=== PATIENT | male | born 1970 | race Caucasian/White ===

== ENCOUNTER 2024-01-24 19:34 | Emergency (ER) | payer MEDICARE, MEDICAID, SELFPAY ==
[2024-01-24 19:48] VITALS: BP 180/99; PULSE 100; RESP 18; TEMP 37.6; O2SAT 100
--- NOTE | 2024-01-24 20:00 | ED.SKABFB ---
HPI - Skin/Abscess/Foreign Bdy General Chief complaint: Skin/Abscess/Foreign Body Stated complaint: foliculitis back of head Time Seen by Provider: 01/24/24 20:05 Source: patient, RN notes reviewed and old records reviewed Mode of arrival: ambulatory Limitations: no limitations History of Present Illness HPI narrative: 53-year-old male who presents to [facility] with complaints of ongoing problems with folliculitis to the back of his head for the past year after having a hair cut. Patient reports that for the past month he has had a flare of raised red areas to the back of his head with pain swelling and some purulent drainage. noted, reports that areas are itchy at times.Patient reports that he did have a fever up to 100F 2 days ago. Pateint reports that he has been applying hot compresses to the back of his head using antibacterial soap and also ivory soap and applying Mupirocin ointment. Patient reports that areas are itchy. Patient reports no history of decrease in kidney function. MD complaint: abscess/boil and other (folliculitis) Onset (ago): month(s) (flare for past 1 pamela has been dealing with this for past year without resolution) Location: head (posterior scalp) Severity scale (1-10): 9 Quality: burning, sharp and other (itching) Treatments prior to arrival: other (warm compresses, antibacterial soap, ivory soap and mupiricin ointment) Related Data Home Medications Medication Instructions Recorded Confirmed albuterol sulfate 90 mcg/actuation See Rx Instructions .Route .COMPLEX 01/24/24 01/24/24 aerosol inhaler losartan 25 mg tablet 25 mg PO DAILY 01/24/24 01/24/24 naproxen sodium 220 mg capsule 220 mg PO BID PRN Pain 01/24/24 01/24/24 (Aleve) tadalafil 5 mg tablet See Rx Instructions .Route .COMPLEX 01/24/24 01/24/24 Allergies Allergy/AdvReac Type Severity Reaction Status Date / Time No Known Allergies Allergy Verified 01/24/24 20:04 Review of Systems Review of Systems: CONSTITUTIONAL: low grade fever,no chills, or sweats. CARDIOVASCULAR: Denies chest pain, palpitations, or edema. RESPIRATORY: Denies cough or dyspnea. GASTROINTESTINAL: Denies abdominal pain, nausea, vomiting SKIN: Reports redness and swelling, irritation with some purulent drainage from scalp lesions, reports pain and itching, flare for the past 1 month MUSCULOSKELETAL: Denies myalgia. NEUROLOGIC: Denies headache, numbness All systems reviewed & are unremarkable except as noted in HPI and below PMFSH Past Medical History Medical History (Updated 01/27/24 @ 10:00 by Eveline Lau NP) Asthma Hypertension Right hand fracture Self-catheterizes urinary bladder since back surgery has to self cath Surgical History Surgical History (Updated 01/27/24 @ 09:59 by Eveline Lau NP) H/O cervical spine surgery H/O right knee surgery History of ankle surgery History of back surgery History of right hip replacement History of surgery on lower extremity left Social History Social History (Updated 01/27/24 @ 09:46 by Eveline Lau NP) Additional smoking assessment comments: Denies any present tobacco use Alcohol intake: unknown Substance use type: does not use Living arrangements: with family Gender identity (if verbalized by the patient): Male Comments At time of signature, agree with nursing past medical, surgical, social and family history. There is no relevant family history pertinent to the presenting complaint Exam Narrative: GENERAL: Well-appearing, well-nourished, obese,and in no acute distress. HEAD: Normocephalic, atraumatic. EYES: PERRLA and EOMI. ENT: Nares clear, no rhinorrhea or epistaxis. Mucous membranes moist. NECK: Supple. no lymphadenopathy CHEST: Clear to auscultation. No respiratory distress.[id number] HEART: Regular rate and rhythm. No murmur heard. Normal peripheral pulses. ABDOMEN: Soft, nontender, nondistended, normal active bowel sounds. EXTREMITIES: Normal range of motion. No
[2024-01-24 20:11] VITALS: BP 180/99; PULSE 100; RESP 18; TEMP 37.6; O2SAT 100
== END 2024-01-24 20:40 | disposition home or self-care (01) ==
PROVIDERS: Emergency Provider Registered Nurse; PCP Nurse Practitioner Family
DX: L73.9 Follicular disorder, unspecified (principal); J45.909 Unspecified asthma, uncomplicated; I10 Essential (primary) hypertension; Z96.641 Presence of right artificial hip joint
CPT/HCPCS: 99213; G0463

== ENCOUNTER 2024-04-03 09:59 | Emergency (ER) | payer MEDICARE, MEDICAID, SELFPAY ==
[2024-04-03 10:06] VITALS: BP 139/96; PULSE 130; RESP 20; TEMP 36.8; O2SAT 100
[2024-04-03 10:13] VITALS: BP 139/96; PULSE 130; RESP 20; TEMP 36.8; O2SAT 100
--- NOTE | 2024-04-03 10:27 | ED.SKABFB ---
HPI - Skin/Abscess/Foreign Bdy General Chief complaint: Skin/Abscess/Foreign Body Stated complaint: Skin Sore Time Seen by Provider: 04/03/24 10:22 Source: patient, RN notes reviewed and old records reviewed Mode of arrival: ambulatory Limitations: no limitations History of Present Illness HPI narrative: 53 year old male who presents to [facility] with complaints of flare of lesions to the back of his head. Patient reports that he was treated for this 2 months ago and it healed up but it is back again. Patient reports that he had an I&D of previous lesions at [facility] and cultures were done showing staph aureus and also MRSA and was treated with Bactrim which did clear lesions up.Patient reports no fevers chills or body aches. MD complaint: lesion (back of his head) Onset (ago): month(s) (on going for almost a year present flare for past 3-4 days) Location: head (back of head) Severity: moderate Treatments prior to arrival: antibiotic and other (mupirocin and ketoconazole shampoo) Related Data Home Medications Medication Instructions Recorded Confirmed albuterol sulfate 90 mcg/actuation See Rx Instructions .Route .COMPLEX 01/24/24 01/24/24 aerosol inhaler losartan 25 mg tablet 25 mg PO DAILY 01/24/24 01/24/24 naproxen sodium 220 mg capsule 220 mg PO BID PRN Pain 01/24/24 01/24/24 (Aleve) tadalafil 5 mg tablet See Rx Instructions .Route .COMPLEX 01/24/24 01/24/24 Allergies Allergy/AdvReac Type Severity Reaction Status Date / Time No Known Allergies Allergy Verified 01/24/24 20:04 Review of Systems Review of Systems: CONSTITUTIONAL: Denies fever, chills, or sweats. CARDIOVASCULAR: Denies chest pain, palpitations, or edema. RESPIRATORY: Denies cough or dyspnea. SKIN: Reports round painful lesions to the back of his scalp no drainage noted, no induration or fluctuation of tissue MUSCULOSKELETAL: Denies joint pain or myalgia. NEUROLOGIC: Denies headache, numbness, or weakness. All systems reviewed & are unremarkable except as noted in HPI and below PMFSH Past Medical History Medical History Asthma Folliculitis Hypertension Right hand fracture Self-catheterizes urinary bladder since back surgery has to self cath Surgical History Surgical History H/O cervical spine surgery H/O right knee surgery History of ankle surgery History of back surgery History of right hip replacement History of surgery on lower extremity left Social History Social History Additional smoking assessment comments: Denies any present tobacco use Alcohol intake: unknown Substance use type: does not use Living arrangements: with family Gender identity (if verbalized by the patient): Male Comments At time of signature, agree with nursing past medical, surgical, social and family history. There is no relevant family history pertinent to the presenting complaint Exam Narrative: GENERAL: Well-appearing, well-nourished, and in no acute distress. HEAD: Normocephalic, atraumatic. EYES: PERRLA, conjunctivae clear, and EOMI. ENT: Mucous membranes moist. Oropharynx without edema, erythema or lesions. NECK: Supple. No lymphadenopathy CHEST: Clear to auscultation. No respiratory distress.SAO2 100% on room air HEART: Regular rate and rhythm. SKIN: Warm, dry.? Patches of round inflamed lesions to the back of his head with no drainage or fluctuation of skin around lesions. NEURO:? Alert and oriented x3. PSYCH: Normal mood and affect Course Course Emergency Course: Patient is aware of diagnosis, understands and agrees to treatment plan.? Anticipatory guidance given.? Patient agrees to follow-up as directed and is aware of reasons to seek care at the emergency department. Portions of this record may have been created with voice olivia
== END 2024-04-03 10:55 | disposition home or self-care (01) ==
PROVIDERS: Emergency Provider Registered Nurse; PCP Nurse Practitioner Family
DX: L73.9 Follicular disorder, unspecified (principal); J45.909 Unspecified asthma, uncomplicated; I10 Essential (primary) hypertension; Z96.641 Presence of right artificial hip joint
CPT/HCPCS: 99213; G0463

== ENCOUNTER 2024-05-20 17:39 | Emergency (ER) | payer MEDICARE, MEDICAID, SELFPAY ==
--- NOTE | 2024-05-20 17:45 | ED.SKABFB ---
HPI - Skin/Abscess/Foreign Bdy General Chief complaint: Skin/Abscess/Foreign Body Stated complaint: foliculitis Time Seen by Provider: 05/20/24 17:45 Source: patient, RN notes reviewed and old records reviewed Mode of arrival: ambulatory Limitations: no limitations History of Present Illness HPI narrative: 53-[facility]-old [facility] to [facility] for complaint of recurrent folliculitis to scalp at occiput. Patient reports being treated here twice earlier this year for same issue. Patient states that he has insurance recently changed to state insurance and that he is having a terribly difficult time finding a water leak repairer in his network. Patient reports wearing hats frequently because he is embarrassed about skin condition. Patient's with patient, states that they frequently change pillow cases. Patient denies fever, drainage. Patient requesting antibiotics and topical cream. Patient resting uncomfortably in exam room. Patient anxious from discomfort. Respirations even and nonlabored. Patient in no acute distress. Related Data Home Medications Medication Instructions Recorded Confirmed albuterol sulfate 90 mcg/actuation See Rx Instructions .Route .COMPLEX 01/24/24 01/24/24 aerosol inhaler losartan 25 mg tablet 25 mg PO DAILY 01/24/24 01/24/24 naproxen sodium 220 mg capsule 220 mg PO BID PRN Pain 01/24/24 01/24/24 (Aleve) tadalafil 5 mg tablet See Rx Instructions .Route .COMPLEX 01/24/24 01/24/24 Allergies Allergy/AdvReac Type Severity Reaction Status Date / Time No Known Allergies Allergy Verified 01/24/24 20:04 Review of Systems Review of Systems: All systems reviewed & are unremarkable except as noted in HPI and below Constitutional: Constitutional: Reports no additional constitutional complaints Eyes: Eyes: Reports no additional eye complaints ENT: Reports system reviewed and no additional complaints, except as documented Cardiovascular: Cardiovascular: Reports no additional cardiovascular complaints, Denies chest pain and Denies dyspnea Respiratory: Respiratory: Reports no additional respiratory complaints, Denies cough and Denies dyspnea Musculoskeletal: Musculoskeletal: Reports no additional musculoskeletal complaints Integumentary/Breasts: Skin/Breast: Reports as per HPI, Reports skin pain, Reports skin swelling and Reports sores ( posterior scalp at occiput) Neurologic: Reports system reviewed and no additional complaints, except as documented Psychiatric: Psychiatric: Reports no additional psychiatric complaints PMFSH Past Medical History Medical History Asthma Folliculitis Hypertension Right hand fracture Self-catheterizes urinary bladder since back surgery has to self cath Surgical History Surgical History H/O cervical spine surgery H/O right knee surgery History of ankle surgery History of back surgery History of right hip replacement History of surgery on lower extremity left Social History Social History Additional smoking assessment comments: Denies any present tobacco use Alcohol intake: unknown Substance use type: does not use Living arrangements: with family Gender identity (if verbalized by the patient): Male Comments At the time of my signature, I reviewed and agree with the nursing past medical, surgical, social, and family history. There is no relevant family history pertinent to the patient complaint. Exam Const: General: cooperative, healthy appearing, no acute distress, alert, anxious, uncomfortable and well nourished Nutritional Appearance: well nourished Orientation/consciousness: patient oriented x3 Limitations: no limitations HENMT: Head: normal to inspection Ears: external ears normal Face/Nose/Sinus: Normal external nose present, Normal nares present, normal facial exam, No er
[2024-05-20 17:54] VITALS: BP 156/78; PULSE 100; RESP 16; TEMP 36.6; O2SAT 100
== END 2024-05-20 18:33 | disposition home or self-care (01) ==
PROVIDERS: Emergency Provider Nurse Practitioner Family; PCP Nurse Practitioner Family
DX: L73.9 Follicular disorder, unspecified (principal); I10 Essential (primary) hypertension; Z96.641 Presence of right artificial hip joint
CPT/HCPCS: 99213; G0463

== ENCOUNTER 2024-06-26 09:48 | Emergency (ER) | payer MEDICARE, MEDICAID, SELFPAY ==
[2024-06-26 10:11] VITALS: BP 152/90; PULSE 86; RESP 16; TEMP 36.5; O2SAT 99
--- NOTE | 2024-06-26 10:26 | ED.SKABFB ---
HPI - Skin/Abscess/Foreign Bdy General Chief complaint: Skin/Abscess/Foreign Body Stated complaint: Back for spots on back of head Time Seen by Provider: 06/26/24 10:26 Source: patient, RN notes reviewed and old records reviewed Mode of arrival: ambulatory Limitations: no limitations History of Present Illness HPI narrative: 53 year old male who presents to [facility] care with complaints of recurrent lesions to the back of his head with redness and patches of hair loss with no fluctuation of skin tissue or drainage noted at this time. Patient reports that he has discomfort to the scalp and has noted some drainage from lesions. Patient reports that he has been unable to get appointment with certified orthotist that will take his insurance. Patient reports that he takes Naproxen daily for his discomfort. Patient reports that he has had no known fevers,chills or sweats. Patient reports that he is very self conscious of his head lesions and doesn't like to be in public without hat. MD complaint: lesion and other (folliculitis) Onset (ago): day(s) (flare of symptoms past week) Location: head (back of head) Severity: moderate Quality: burning and aching Treatments prior to arrival: OTC topical medication and other (previous antibiotic) Related Data Home Medications Medication Instructions Recorded Confirmed albuterol sulfate 90 mcg/actuation See Rx Instructions .Route .COMPLEX 01/24/24 01/24/24 aerosol inhaler losartan 25 mg tablet 25 mg PO DAILY 01/24/24 01/24/24 naproxen sodium 220 mg capsule 220 mg PO BID PRN Pain 01/24/24 01/24/24 (Aleve) tadalafil 5 mg tablet See Rx Instructions .Route .COMPLEX 01/24/24 01/24/24 Allergies Allergy/AdvReac Type Severity Reaction Status Date / Time No Known Allergies Allergy Verified 01/24/24 20:04 Review of Systems Review of Systems: CONSTITUTIONAL: Denies fever, chills, or sweats. CARDIOVASCULAR: Denies chest pain, palpitations, or edema. RESPIRATORY: Denies cough or dyspnea. GASTROINTESTINAL: Denies abdominal pain, nausea, vomiting SKIN: Reports redness and swelling with some red lesions to the back of his head at occiput with areas of hair loss. reports some purulent drainage, no present drainage noted or induration of tissue.states some burning and aching of scalp area. MUSCULOSKELETAL: Denies myalgia. NEUROLOGIC: Denies headache, numbness All systems reviewed & are unremarkable except as noted in HPI and below PMFSH Past Medical History Medical History Asthma Folliculitis Hypertension Right hand fracture Self-catheterizes urinary bladder since back surgery has to self cath Surgical History Surgical History H/O cervical spine surgery H/O right knee surgery History of ankle surgery History of back surgery History of right hip replacement History of surgery on lower extremity left Social History Social History Additional smoking assessment comments: Denies any present tobacco use Alcohol intake: unknown Substance use type: does not use Living arrangements: with family Gender identity (if verbalized by the patient): Male Comments At time of signature, agree with nursing past medical, surgical, social and family history. There is no relevant family history pertinent to the presenting complaint Exam Narrative: GENERAL: Well-appearing, well-nourished, and in no acute distress. HEAD: Normocephalic, atraumatic. EYES: PERRLA and EOMI. ENT: Nares clear, no rhinorrhea or epistaxis. Mucous membranes moist. NECK: Supple. no lymphadenopathy CHEST: Clear to auscultation. No respiratory distress.SAO2 99% on room air HEART: Regular rate and rhythm. No murmur heard. Normal peripheral pulses. ABDOMEN: Soft, nontender, nondistended, normal active bowel sounds. EXTREMITIES: Normal range of motion. No edema. SKIN:
== END 2024-06-26 10:48 | disposition home or self-care (01) ==
PROVIDERS: Emergency Provider Registered Nurse; PCP Nurse Practitioner Family
DX: L73.9 Follicular disorder, unspecified (principal); L98.9 Disorder of the skin and subcutaneous tissue, unspecified; J45.909 Unspecified asthma, uncomplicated; I10 Essential (primary) hypertension; Z96.641 Presence of right artificial hip joint
CPT/HCPCS: 99213; G0463